=== PATIENT | female | born 1970 | race Caucasian/White ===

== ENCOUNTER 2025-01-26 09:01 | Outpatient (CLI) | payer OTHER, SELFPAY ==
--- NOTE | ~2025-01-26 | MM_ITS ---
EXAMINATION: screening [facility] BI w josé manuel INDICATION: Asymptomatic, referred for screening mammogram COMPARISON: None available TECHNIQUE: Digital Breast Tomosynthesis CC, MLO views of Both breasts were obtained with computer-aided detection to assist in interpretation of the study. FINDINGS: The breasts are heterogeneously dense, which may obscure small masses. There is an asymmetry seen on the MLO view in the Superior left breast at anterior third. There is a group of calcifications in linear distribution seen in the inferior medial left breast at middle depth centered at 3.9 cm posterior to the nipple In addition, there are prominent lymph nodes in both axilla some of which has thickened cortices. Elsewhere, there are no mammographic features of malignancy. IMPRESSION: 1. Left breast Incompletely characterized group of calcifications. 2. Left breast asymmetry. 3. Bilateral axillary prominent lymph nodes. RECOMMENDATION: 1. Left breast Diagnostic mammogram with true lateral, and appropriate magnification views. 2. Diagnostic left mammography with appropriate spot compression views and correlate to left breast ultrasound if necessary. 3. Bilateral axillary ultrasound BI-RADS Category 0: Incomplete: Needs additional imaging evaluation. Reviewed, dictated and finalized at location B. IMPRESSION: 1. Left breast Incompletely characterized group of calcifications. 2. Left breast asymmetry. 3. Bilateral axillary prominent lymph nodes. RECOMMENDATION: 1. Left breast Diagnostic mammogram with true lateral, and appropriate magnific ation views. 2. Diagnostic left mammography with appropriate spot compression views and shivani elate to left breast ultrasound if necessary. 3. Bilateral axillary ultrasound BI-RADS Category 0: Incomplete: Needs additional imaging evaluation.
--- OUTSIDE RECORDS SUMMARY | 2025-01-26 09:22 | XMS_ITS | Encounter Summary ---
Author Organization [facility] Address 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
--- OUTSIDE RECORDS SUMMARY | 2025-01-26 09:22 | XMS_ITS | Encounter Summary ---
Author Organization [facility] Address 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 TOBACCO USE Patient does not currently use tobacco. MEDICATIONS: Patient is taking no medications at present. CHIEF COMPLAINT Patient complains of earaches.right side HISTORY: ROS: GENERAL: Normal activity and energy level, no change in appetite. No major weight gain or loss. No malaise, chills, fever, diaphoresis.. ENT: No hearing loss, epistaxis, hoarseness or dysphagia. No sinus congestion.. ENDOCRINE: No heat or cold intolerance, no excessive thirst.. CARDIAC: No chest pain, palpitations, orthopnea, dyspnea on exertion, or paroxysmal nocturnal dyspnea.. RESPIRATORY: No dyspnea, cough, hemoptysis or wheezing.. : No frequency, urgency, hematuria or dysuria.. GI: No abdominal pain, nausea, vomiting, diarrhea, constipation, melena, or hematochezia.. PHYSICAL EXAMINATION: CONSTITUTIONAL: GENERAL APPEARANCE: Healthy appearing patient in no distress. NECK/THYROID: Trachea midline. No thyroid enlargement, tenderness, or mass. No supraclavicular or cervical adenopathy.ears-wnl//neck-wnl RESPIRATORY: Clear to auscultation and percussion. Normal respiratory effort. CARDIOVASCULAR: CARDIAC: Regular rhythm. No murmurs, rubs, or gallops. ARTERIAL: No aortic bruits. EDEMA/VARICOSITIES OF EXTREMITIES: No edema or varicosities. GASTROINTESTINAL: ABDOMEN: Soft, non-tender, without masses. Bowel sounds active. LIVER/SPLEEN/KIDNEY: No hepatosplenomegaly, tenderness or nodularity. Kidneys not palpable.neuro/fundo--wnl ASSESSMENT/PLAN: 780.52-INSOMNIA nadia MEDICATIONS: XANAX ORAL TABLET 0.25 MG, 1/2 to 1 bid prn anxiety B.I.D. P.R.N., 30 Dispensed, status: NEW PRESCRIPTION, 12/03/2006. FLUOXETINE HCL ORAL TABLET 20 MG, 1 Every Day, 30 Dispensed, 8 Fills, status: NEW PRESCRIPTION, 12/03/2006. 388.71-OTHER DISORDERS OF EAR none x 1 wk had been present x 2wks--intermitt rt ear pn sometimes assoc w rt parietal pn- always assoc w anxiety---no focal neuro deficits RETURN VISIT : Patient instructed to return in 1 month.if progreses or persists we discussed an mri- she thinks this is stress related and wishes to delay testing Electronically Signed by: Luis Lin MD on Sunday, December 03, 2006 documented in this encounter Plan of Treatment Not on file documented as of this encounter Visit Diagnoses Not on filedocumented in this encounter Care Teams Pressure Sealer And Tester Relationship Specialty Start Date End Date Gil Mackay MD [address] [place] [address] [place] [phone] PCP - General Internal Medicine 07/21/14 documented as of this encounter
--- OUTSIDE RECORDS SUMMARY | 2025-01-26 09:22 | XMS_ITS | Encounter Summary ---
Author Organization [facility] Address [address] [place] [address] Care Team Providers Care Director Of Home Care Hospice Name Role Phone Gil Mackay MD Primary Care Provider [phone] Encounter Details Date Type Department Care Team (Late st Contact Info) Description 07/16/2000 Outpatient Historical [facility] Internal Medicine - [place] [address] [place] [phone] [place] [address] [place] [address] Social History Tobacco Use Types Packs/Day Years Used Date Smoking Tobacco: Never Assessed Comments Unknown Sex and Gender Information Value Date Recorded Sex Assigned at Not on file 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
--- OUTSIDE RECORDS SUMMARY | 2025-01-26 09:22 | XMS_ITS | Encounter Summary ---
Author Organization [employer] Address 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
--- OUTSIDE RECORDS SUMMARY | 2025-01-26 09:22 | XMS_ITS | Encounter Summary ---
Author Organization [facility] Address [address] [place] [address] Care Team Providers Care Sas Statistical Programmer Name Role Phone Gil Mackay MD Primary Care Provider [phone] Encounter Details Date Type Department Care Team (Late st Contact Info) Description 05/17/2003 Outpatient Historical [facility] Internal Medicine - [place] [address] [place] [phone] [place] [address] [place] [address] Social History Tobacco Use Types Packs/Day Years Used Date Smoking Tobacco: Never Assessed Comments Unknown Sex and Gender Information Value Date Recorded Sex Assigned at Not on file 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 Gender Identity Not on file Sexual Orientation Not on file documented as of this encounter Last Filed Vital Signs Vital Sign Reading Time Taken Comments Blood Pressure 128/84 05/17/2003 11:30 AM FOOD AND BEVERAGE OPERATIONS MANAGER Pulse 60 05/17/2003 11:30 AM FOOD AND BEVERAGE OPERATIONS MANAGER Temperature - - Respiratory Rate - - Oxygen Saturation - - Inhaled Oxygen Concentration - - Weight 73.9 kg (163 lb) 05/17/2003 11:30 AM FOOD AND BEVERAGE OPERATIONS MANAGER Height - - Body Mass Index - - documented in this encounter Plan of Treatment Not on file documented as of this encounter Visit Diagnoses Not on filedocumented in this encounter Care Teams Sas Statistical Programmer Relationship Specialty Start Date End Date Gil Mackay MD [address] [place] [address] [place], [place] [phone] PCP - General Internal Medicine 07/21/14 documented as of this encounter
--- OUTSIDE RECORDS SUMMARY | 2025-01-26 09:22 | XMS_ITS | Encounter Summary ---
Author Organization [facility] Address [address] [place] [address] Care Team Providers Care Analytical Sciences Director Name Role Phone Gil Mackay MD Primary Care Provider [phone] Encounter Details Date Type Department Care Team (Late st Contact Info) Description 12/03/2006 Outpatient [facility] Internal Medicine - [place] [address] [place] [address] [place] [address] [place] [address] Social History Tobacco Use Types Packs/Day Years Used Date Smoking Tobacco: Never Assessed Comments Unknown Sex and Gender Information Value Date Recorded Sex Assigned at Not on file 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 Gender Identity Not on file Sexual Orientation Not on file documented as of this encounter Last Filed Vital Signs Vital Sign Reading Time Taken Comments Blood Pressure 142/90 12/03/2006 2:45 PM CDT Pulse 76 12/03/2006 2:45 PM CDT Temperature - - Respiratory Rate - - Oxygen Saturation - - Inhaled Oxygen Concentration - - Weight 76.2 kg (168 lb) 12/03/2006 2:45 PM CDT Height - - Body Mass Index - - documented in this encounter Plan of Treatment Not on file documented as of this encounter Visit Diagnoses Not on filedocumented in this encounter Care Teams Analytical Sciences Director Relationship Specialty Start Date End Date Gil Mackay MD [address] [place] [address] [place], [place] [phone] PCP - General Internal Medicine 07/21/14 documented as of this encounter
--- OUTSIDE RECORDS SUMMARY | 2025-01-26 09:22 | XMS_ITS | Encounter Summary ---
Author Organization [facility] Address [address] [place] [address] Care Team Providers Care Town Planner Name Role Phone Gil Mackay MD Primary Care Provider [phone] Encounter Details Date Type Department Care Team (Late st Contact Info) Description 02/18/1998 Outpatient Historical [facility] Internal Medicine - [place] [address] [place] [phone] [place] [address] [place] [address] Social History Tobacco Use Types Packs/Day Years Used Date Smoking Tobacco: Never Assessed Comments Unknown Sex and Gender Information Value Date Recorded Sex Assigned at Not on file 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
--- OUTSIDE RECORDS SUMMARY | 2025-01-26 09:22 | XMS_ITS | Clinical Summary ---
Author Organization [facility] Address [address] [place] [address] Phone Care Team Providers Care Snap Attacher Name Role Phone Gil Mackay MD Primary Care Provider [phone] Allergies Active Allergy Reactions Criticality Noted Date Comments No Known Allergies 05/17/2003 Medications ALPRAZolam (XANAX) 0.25 mg tablet TAKE 1 TABLET BY MOUTH EVERY NIGHT NEEDED ANXIETY 30 Tablet 0 07/22/2015 Active metoprolol tartrate (LOPRESSOR) 25 mg tabletIndicatio ns:HTN (hypertension), benign,Palpitat ions Take 1 Tablet (25 mg) by mouth 2 times daily. 180 Tablet 3 08/10/2015 Active citalopram (CELEXA) 20 mg tabletIndicatio ns:Anxiety Take 1 Tablet (20 mg) by mouth daily. 90 Tablet 3 08/10/2015 Active citalopram (CELEXA) 10 mg tabletIndicatio ns:Anxiety Take 1 Tablet (10 mg) by mouth daily Total Celexa dose 30 mg a day. 90 Tablet 3 08/10/2015 Active methylPREDNISol one (MEDROL DOSPACK) 4 mg Tablets, Dose PackIndications :Left-sided low back pain with left-sided sciatica Taper daily. 1 Package 0 08/10/2015 Active atorvastatin (LIPITOR) 20 mg tablet TAKE 1 TABLET BY MOUTH DAILY LATE IN THE DAY 90 Tablet 2 11/14/2015 Active Active Problems Problem Noted Date Diagnosed Date Situational mixed anxiety and depressive disorde r 08/10/2015 Left-sided low back pain with left-sided sciatic a 08/10/2015 HLD (hyperlipidemia) 07/27/2014 History of malignant carcinoid tumor 06/09/2014 HTN (hypertension), benign 04/29/2014 Palpitations 04/28/2014 paroxysmal nocturnal dyspnea 04/05/2014 Sinus tachycardia 04/05/2014 Carcinoid tumor 06/09/2009 Overview (08/10/2015): Carcinoid tumor of ovary Dx in 2009 No radiation /chemo after Had one c-scope pre surgery but not since. Otogenic pain 12/03/2006 Insomnia, unspecified 05/17/2003 Family History Medical History Relation Name Comments Unknown Brother 1 Hypertension Brother 2 Unknown Father Hypertension Mother Breast Cancer Neg Hx Cancer Neg Hx Ovarian Cancer Neg Hx Relation Name Status Comments Brother 1 Alive Brother 2 Alive Father Alive Mother Alive Sister Alive Social History Tobacco Use Types Packs/Day Years Used Date Smoking Tobacco: Never Alcohol Use Standard Drinks/Week Comments Yes 0 (1 standard drink = 0.6 oz pur e alcohol) 2/wk Comments No Sex and Gender Information Value Date Recorded Sex Assigned at Not on file 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 Gender Identity Not on file Sexual Orientation Not on file Occupation Industry Job Start Date Job End Date Not on file Not on file Not on file Not on file Last Filed Vital Signs Vital Sign Reading Time Taken Comments Blood Pressure 130/80 08/10/2015 10:04 AM CDT Pulse 69 08/10/2015 10:04 AM CDT Temperature 36.2 C (97.2 F) 08/10/2015 10:04 AM CDT Respiratory Rate 16 04/02/2015 7:28 AM BOAT DETAILER Oxygen Saturation 99% 08/10/2015 10:04 AM CDT Inhaled Oxygen Concentration - - Weight 88.5 kg (195 lb) 08/10/2015 10:04 AM CDT Height 175.3 cm (5' 9) 08/10/2015 10:04 AM CDT Body Mass Index 28.8 08/10/2015 10:04 AM CDT Plan of Treatment Health Maintenance Due Date Last Done Comments DTAP/TDAP/TD VACCINES (1 - Tdap) 1990 HEPATITIS B VACCINES (1 of 3 - 19+ 3-dose series) 1990 FIT-DNA Q 3 years 02/22/2016 FIT/FOBT Q 1 year 02/22/2016 Flex Sig/CT Colonography Q 5 years 02/22/2016 BREAST CANCER SCREENING 02/07/2019 02/08/20 18, 01/27/2015, 12/10/2012, Additional history exists COLORECTAL SCREENING 06/08/2019 06/08/2009 Colorectal Cancer Screening 06/08/2019 ZOSTER VACCINE (1 of 2) 2021 Preventative Visit- Commercial 04/22/2024 08/10/2015 , 07/21/2014 INFLUENZA VACCINE (#1) 2024 Medical Devices Implanted Type Area Wind Energy Mechanic Device Identifier Shelf Expiration Date Model / Serial / Lot Barrier Seprafilm [id number] Implanted:Qty: 1 on 04/08/2009 at [facility] Adhesion Barrier [id number]- [id number] / / Procedures Procedure Name Priority Date/Time Associated Diagnosis Comments MAMMO 3D ASYA SCREEN BILAT W OR WO CAD Routine 02/07/2018 12:07 PM CDT Breast cancer screening from Last 3 Months or Most Recently Relevant to Health Maintenance Results * MAMMO SCRN BILAT 3D ASYA W OR WO CAD (02/07/2018 12:07 PM CDT) Anatomical Region Laterality Modality Breast Bilateral Mammography 02/07/2018 12:0 7 PM CDT Impressions 02/10/2018 8:37 AM CDT IMPRESSION: 1. No concerning developing findings. OVERALL ASSESSMENT: BI-RADS Category 2 - Benign findings. RECOMMENDATIONS: 1. Recommend annual mammography. 2. Patient may benefit from annual screening breast ultrasound given the density of her breast tissue. Narrative 02/10/2018 8:37 AM CDT BILATERAL SCREENING DIGITAL MAMMOGRAM WITH TOMOSYNTHESIS AND CAD DATE: 02/07/2018 12:07 PM DICTATION LOCATION: [facility] (Location #1) HISTORY: Routine yearly screening exam. TECHNIQUE: Low-dose full-field digital breast tomosynthesis examination was performed of both breasts with 2D and 3D acquisitions. CAD was utilized. COMPARISON: 01/27/2015 and 12/03/2012 BREAST COMPOSITION: Heterogeneously dense, which limits the sensitivity of mammography. FINDINGS: No concerning dominant masses, suspicious calcifications, parenchymal asymmetries or areas of architectural distortion are identified in either breast. Changes related to bilateral reduction surgery. Procedure Note Timmy Reilly MD - 02/10/2018 BILATERAL SCREENING DIGITAL MAMMOGRAM WITH TOMOSYNTHESIS AND CAD DATE: 02/07/2018 12:07 PM DICTATION LOCATION: [facility] (Location #1) HISTORY: Routine yearly screening exam. TECHNIQUE: Low-dose full-field digital breast tomosynthesis examination was performed of both breasts with 2D and 3D acquisitions. CAD was utilized. COMPARISON: 01/27/2015 and 12/03/2012 BREAST COMPOSITION: Heterogeneously dense, which limits the sensitivity of mammography. FINDINGS: No concerning dominant masses, suspicious calcifications, parenchymal asymmetries or areas of architectural distortion are identified in either breast. Changes related to bilateral reduction surgery. IMPRESSION: 1. No concerning developing findings. OVERALL ASSESSMENT: BI-RADS Category 2 - Benign findings. RECOMMENDATIONS: 1. Recommend annual mammography. 2. Patient may benefit from annual screening breast ultrasound given the density of her breast tissue. us Christina Oakes MD MAMMO ORDERABLES Final Result from Last 3 Months or Most Recently Relevant to Health Maintenance Insurance [facility] [employer] PPO [id number] Advance Directives For more information, please contact: [phone] * Full Code (Latest Code Status on File) Date Activated Date Inactivated Comments 03/31/2015 3:23 PM 04/02/2015 2:06 PM * Full Code Date Activated Date Inactivated Comments 03/31/2015 10:11 AM 03/31/2015 3:23 PM * Full Code Date Activated Date Inactivated Comments 03/31/2015 9:35 AM 03/31/2015 10:11 AM * Full Code Date Activated Date Inactivated Comments 06/09/2009 3:47 PM 06/10/2009 2:01 AM * Full Code Date Activated Date Inactivated Comments 06/09/2009 12:03 PM 06/09/2009 3:47 PM Care Teams Snap Attacher Relationship Specialty Start Date End Date Gil Mackay MD [address] [facility] [address] [place] [address] PCP - General Internal Medicine 07/21/14
--- OUTSIDE RECORDS SUMMARY | 2025-01-26 09:22 | XMS_ITS | Encounter Summary ---
Author Organization [email or web address] Address [address] [place] [address] Care Team Providers Care Damaged Freight Inspector Name Role Phone Gil Mackay MD Primary Care Provider [phone] Encounter Details Date Type Department Care Team (Latest Contact Info) Description 09/01/1999 Inpatient Historical HIS PATIENT IN A BED Christina Oakes MD [address] [place] [address] Other and unspecified cord entanglement, without mention of compression, complicating labor and delivery, delivered (Primary Dx) Social History Tobacco Use Types Packs/Day Years Used Date Smoking Tobacco: Never Assessed Comments Unknown Sex and Gender Information Value Date Recorded Sex Assigned at Not on file 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
--- OUTSIDE RECORDS SUMMARY | 2025-01-26 09:22 | XMS_ITS | Encounter Summary ---
Author Organization [facility] Address [address] [place] [address] Care Team Providers Care Workforce Analyst Name Role Phone Gil Mackay MD Primary Care Provider [phone] Encounter Details Date Type Department Care Team (Late st Contact Info) Description 10/10/2001 Outpatient Historical [facility] Internal Medicine - [place] [address] [place] [address] [place] [address] [place] [address] Social History Tobacco Use Types Packs/Day Years Used Date Smoking Tobacco: Never Assessed Comments Unknown Sex and Gender Information Value Date Recorded Sex Assigned at Not on file Legal Sex Female 2:47 AM GROUP ACTIVITIES AIDE Gender Identity Not on file Sexual Orientation Not on file documented as of this encounter Plan of Treatment Not on file documented as of this encounter Visit Diagnoses Not on filedocumented in this encounter Care Teams Workforce Analyst Relationship Specialty Start Date End Date Gil Mackay MD [address] [facility] [address] [place] [address] PCP - General Internal Medicine 07/21/14 documented as of this encounter
--- OUTSIDE RECORDS SUMMARY | 2025-01-26 09:22 | XMS_ITS | Encounter Summary ---
Author Organization [employer] Address [address] [place] [address] Care Team Providers Care Fabricating Machine Operator Name Role Phone Gil Mackay MD Primary Care Provider [phone] Encounter Details Date Type Department Care Team (Latest Contact Info) Description 01/09/2004 Outpatient Historical HIS PATIENT IN A BED Christina Oakes MD [address] [place] [address] OTHER CURR COND-ANTEPARTUM (Primary Dx) Social History Tobacco Use Types Packs/Day Years Used Date Smoking Tobacco: Never Assessed Comments Unknown Sex and Gender Information Value Date Recorded Sex Assigned at Not on file Legal Sex Female 2:47 AM INFANT BABYSITTER Gender Identity Not on file Sexual Orientation Not on file documented as of this encounter Plan of Treatment Not on file documented as of this encounter Visit Diagnoses Diagnosis Other current maternal conditions classifiable elsewhere, antepartum- Primary documented in this encounter Care Teams Fabricating Machine Operator Relationship Specialty Start Date End Date Gil Mackay MD [address] [place] [address] [place] [address] PCP - General Internal Medicine 07/21/14 documented as of this encounter
== END 2025-01-26 09:02 | disposition home or self-care (01) ==
DX: Z12.31 Encounter for screening mammogram for malignant neoplasm of breast (principal); R92.8 Other abnormal and inconclusive findings on diagnostic imaging of breast
CPT/HCPCS: 77063; 77067